=== PATIENT | female | born 1985 | race Caucasian/White ===

== ENCOUNTER → 2021-01-22 13:41 | Outpatient (BNVA) | payer SELFPAY | PROVIDERS: Visit Provider Nurse Practitioner Women's Health | DX: O09.899 Supervision of other high risk pregnancies, unspecified trimester (principal); Z3A.00 Weeks of gestation of pregnancy not specified | CPT/HCPCS: 80307; 81000; 85027; 86592; 86762; 86803; 86850; 86900; 87086; 87340; 87806 ==

== ENCOUNTER → 2021-02-12 09:00 | Outpatient (BNVA) | payer SELFPAY | PROVIDERS: Visit Provider Obstetrics & Gynecology | DX: O09.899 Supervision of other high risk pregnancies, unspecified trimester (principal); O09.522 Supervision of elderly multigravida, second trimester; O34.219 Maternal care for unspecified type scar from previous cesarean delivery; O09.32 Supervision of pregnancy with insufficient antenatal care, second trimester; O30.009 Twin pregnancy, unspecified number of placenta and unspecified number of amniotic sacs, unspecified trimester; Z3A.00 Weeks of gestation of pregnancy not specified | CPT/HCPCS: 81000; 87491; 87591; 87661; 88175 ==

== ENCOUNTER 2021-02-16 14:54 | Outpatient (CLI) | payer SELFPAY ==
--- NOTE | 2021-02-16 15:00 | US_ITS ---
WS: [id number] ULTRASOUND OB LIMITED TECHNIQUE: Limited ultrasound examination of the fetus. CLINICAL INFORMATION: O09.899 - Supervision of other high risk pregnancies, uns... FINDINGS: Closed cervix measures 5.2 CM. Twin intrauterine . presentation is variable Placental location is posterior. heart rate 153 BPM. US/US OB lmt with transvaginal IMPRESSION: 1. Cervix is long and closed measuring 5.2 CM.
== END 2021-02-16 14:55 | disposition home or self-care (01) ==
PROVIDERS: PCP Nurse Practitioner; Visit Provider Obstetrics & Gynecology
DX: O09.899 Supervision of other high risk pregnancies, unspecified trimester (principal); O30.009 Twin pregnancy, unspecified number of placenta and unspecified number of amniotic sacs, unspecified trimester
CPT/HCPCS: 76815; 76817

== ENCOUNTER → 2021-03-08 14:43 | Outpatient (BNVA) | payer SELFPAY | PROVIDERS: PCP Nurse Practitioner; Visit Provider Obstetrics & Gynecology | DX: O09.899 Supervision of other high risk pregnancies, unspecified trimester (principal); Z3A.00 Weeks of gestation of pregnancy not specified | CPT/HCPCS: 81000 ==

== ENCOUNTER → 2021-04-01 09:58 | Outpatient (BNVA) | payer SELFPAY | PROVIDERS: PCP Nurse Practitioner; Visit Provider Obstetrics & Gynecology | DX: O09.899 Supervision of other high risk pregnancies, unspecified trimester (principal); O26.899 Other specified pregnancy related conditions, unspecified trimester; Z67.91 Unspecified blood type, Rh negative; O09.522 Supervision of elderly multigravida, second trimester; O34.219 Maternal care for unspecified type scar from previous cesarean delivery; O09.32 Supervision of pregnancy with insufficient antenatal care, second trimester; O30.009 Twin pregnancy, unspecified number of placenta and unspecified number of amniotic sacs, unspecified trimester; Z3A.00 Weeks of gestation of pregnancy not specified | CPT/HCPCS: 81000; 82950; 85025; 86850 ==

== ENCOUNTER → 2021-04-15 10:38 | Outpatient (BNVA) | payer SELFPAY | PROVIDERS: PCP Nurse Practitioner; Visit Provider Obstetrics & Gynecology | DX: O09.899 Supervision of other high risk pregnancies, unspecified trimester (principal); O36.8190 Decreased fetal movements, unspecified trimester, not applicable or unspecified; O09.522 Supervision of elderly multigravida, second trimester; O34.219 Maternal care for unspecified type scar from previous cesarean delivery; O30.009 Twin pregnancy, unspecified number of placenta and unspecified number of amniotic sacs, unspecified trimester; Z3A.00 Weeks of gestation of pregnancy not specified | CPT/HCPCS: 81000 ==

== ENCOUNTER → 2021-04-29 10:31 | Outpatient (BNVA) | payer SELFPAY | PROVIDERS: PCP Nurse Practitioner; Visit Provider Obstetrics & Gynecology | DX: O09.899 Supervision of other high risk pregnancies, unspecified trimester (principal) | CPT/HCPCS: 81000 ==

== ENCOUNTER → 2021-05-06 13:04 | Outpatient (BNVA) | payer SELFPAY | PROVIDERS: PCP Nurse Practitioner; Visit Provider Obstetrics & Gynecology | DX: O09.899 Supervision of other high risk pregnancies, unspecified trimester (principal) | CPT/HCPCS: 81000 ==

== ENCOUNTER → 2021-05-13 13:00 | Outpatient (BNVA) | payer SELFPAY | PROVIDERS: PCP Nurse Practitioner; Visit Provider Obstetrics & Gynecology | DX: O09.899 Supervision of other high risk pregnancies, unspecified trimester (principal) | CPT/HCPCS: 81000 ==

== ENCOUNTER 2021-05-24 12:10 | Outpatient (CLI) | payer SELFPAY ==
[2021-05-24] VITALS (9 sets, daily range): BP systolic 129–147; BP diastolic 62–84; PULSE 99–105; RESP 17; BMI 51.5
--- NOTE | 2021-05-24 12:41 | US_ITS ---
WS: [id number] ULTRASOUND OB LIMITED TECHNIQUE: Limited ultrasound examination of the fetus. CLINICAL INFORMATION: twin gestation COMPARISON: May 06, 2021, April 29, 2021. FINDINGS: Normal cervix measuring 4.2 CM. Twin interuterine gestation. presentation is breech for both twins Placenta twin A not well visualized. Placenta twin B appears anterior fundal. heart rate 147 BPM. Normal JEREMY Biophysical profile 8 out of 8. breathin movement: 2 tone: 2 Amniotic fluid: 2 US/US OB BPP wo NST twins IMPRESSION: 1. Normal biophysical profile 8 out of 8 in twin A and B 2. presentation is breech for both twins 3. Normal cervix measuring 4.2 cm
[2021-05-24] MEDS: betamethasone susp 6 mg/mL 5 mL 12 MG IM (13:09)
== END 2021-05-24 14:25 | disposition home or self-care (01) ==
LOC: OPOB 12:18 → OBGYN 12:20
PROVIDERS: PCP Nurse Practitioner; Visit Provider Obstetrics & Gynecology
DX: O30.009 Twin pregnancy, unspecified number of placenta and unspecified number of amniotic sacs, unspecified trimester (principal)
CPT/HCPCS: 59025; 76819; 81000; 87635; 96372; 99211; J0702

== ENCOUNTER 2021-05-25 12:58 | Outpatient (CLI) | payer SELFPAY ==
[2021-05-25 13:00] VITALS: BMI 52.8
[2021-05-25] MEDS: betamethasone susp 6 mg/mL 5 mL 12 MG IM (13:10)
[2021-05-25 13:13] VITALS: BP 174/100; PULSE 103
[2021-05-25 13:14] VITALS: BP 133/80; PULSE 92
--- NOTE | 2021-05-25 13:24 | PC.NURSE ---
PT HERE FOR 2ND STERIOD INJECTION, BLOOD PRESSURE DONE WHILE SHE WAS STANDING AND TALKING AND MOVING ARM AROUND, HAD HER SIT DOWN AND B/P RETAKEN. AND IT WAS MUCH BETTER.
[2021-05-25 13:25] VITALS: BP 133/80; PULSE 92; RESP 20
== END 2021-05-25 13:20 | disposition home or self-care (01) ==
LOC: OPOB 13:02 → OBGYN 13:02
PROVIDERS: PCP Nurse Practitioner; Visit Provider Obstetrics & Gynecology
DX: O36.0190 Maternal care for anti-D [Rh] antibodies, unspecified trimester, not applicable or unspecified (principal); Z3A.00 Weeks of gestation of pregnancy not specified
CPT/HCPCS: 96372; 99211; J0702

== ENCOUNTER 2021-05-27 05:14 | Inpatient (IN) | payer SELFPAY ==
--- NOTE | 2021-05-24 14:51 | P.ANESASSM_ITS ---
Pre-Anesthetic Assessment Pre-Anesthetic Assessment: Height/Weight: Height 1.63 m Proposed Procedure: Operation Date: 05/27/21 07:00 Proposed Procedures p Section Repeat(Not Applicable) - Katie Downing MD Was Beta Dede taken within 24 hours: N/A Was Clonidine taken within 24 hours: N/A Social: Social History: No alcohol and No tobacco Exam: Pre-Anes Outpt Exam: alert, oriented x 3, clear to auscultation bilaterally and regular rate & rhythm Airway: Submandibular: WNL Cervical ROM: WNL MP: 2 Dentition: Chipped Metabolic: Metabolic: Morbid obesity Anesthetic Plan: ASA status: 3 Anesthesia: Regional (specify below) (SAB) Other: Repeat C/S, twin Risk of > 500 ml blood loss (7ml/kg in children): Yes, adequate IV access and fluids planned PFSH Anesthesia PFSH: Medical History No pertinent past medical history Neg hx: HTN, DM, thyroid, DVT/PE PCP: None Surgical History History of delivery section 1: 2012 - T -incision per patient. Abnormal presentation - hands and feet. History of delivery section 2: 2014 - Repeat section History of delivery section 3: 2016 - Repeat section History of delivery section 4: 2018 - Repeat section History of delivery section 5: 02/19/2019 - Repeat LTCS. Performed by Dr. Cullen Ruiz at [facility] in [place], [place]. Family History Grandfather Cancer unknown type Denies family history of Diabetes CAD (coronary artery disease) Clotting disorder Dementia Hyperlipidemia Psychiatric illness Chronic kidney disease (CKD) Anesthesia complication Bleeding disorder Lung disease Hypertension Stroke Data Anesthesia Cardiac Studies: No Data to Display
[2021-05-27] VITALS (39 sets, daily range): BP systolic 108–170; BP diastolic 60–93; PULSE 62–88; RESP 16–19; TEMP 36.2–36.8; O2SAT 96–100; BMI 51.1
[2021-05-27 06:21] LABS: Basophils % 0.2 %; Eosinophils % 0.3 %; Hematocrit 33.8 % (37.0-47.0); Lymphocytes # 2.2 10^3/uL (0.8-4.8); Lymphocytes % 20.9 %; Mean Corpuscular HGB Conc 32.5 g/dL (30.0-36.0); Mean Corpuscular Hemoglobin 28.2 pg (28.0-34.0); Mean Corpuscular Volume 86.7 fl (81-99); Mean Platelet Volume 10.8 fL (7.4-10.4); Monocytes # 0.9 10^3/uL (0.2-0.9); Monocytes % 8.3 %; Neutrophils # 7.34 10^3/uL (1.8-7.7); Nucleated Red Blood Cells % 0 %; Platelet Count 207 10^3/cmm (130-400); Red Cell Distribution Width 14.6 % (12.1-15.1); White Blood Count 10.6 10^3/uL (4.0-10.0)
[2021-05-27] MEDS: famotidine 20 mg/2 mL INJ IVP (06:50)
[2021-05-27] MEDS: metoclopramide 5 mg/mL SDV 2 mL 10 MG IVP (06:50)
[2021-05-27] MEDS: citric acid-sodium citrate 30 mL UDC PO (06:51)
--- NOTE | 2021-05-27 06:51 | P.ANESUD_ITS ---
Pre-Anesthetic Update Pre-Anesthetic Assessment: Date of Surgery/Procedure: 05/27/21 Preop Aylin gnosis: previous C/S Proposed Procedure: Operation Date: 05/27/21 07:00 Proposed Procedures p Section Repeat(Not Applicable) - Katie Downing MD Any changes to Pre-Anesthetic Assessment?: No Last Intake: Intake Last Liquid Date 05/27/21 Last Liquid Time 00:00 Last Solid Date 05/26/21 Last Solid Time 19:00 Labs Last 48hrs: Laboratory Results - last 48 hr 05/27/21 05:50 WBC 10.6 H RBC 3.90 L Hgb 11.0 L Hct 33.8 L MCV 86.7 MCH 28.2 MCHC 32.5 RDW 14.6 Plt Count 207 MPV 10.8 H Neut % (Auto) 69.0 Lymph % (Auto) 20.9 Taliaferro % (Auto) 8.3 Eos % (Auto) 0.3 Baso % (Auto) 0.2 Neut # (Auto) 7.34 Lymph # (Auto) 2.2 Taliaferro # (Auto) 0.9 Eos # (Auto) 0.0 Baso # (Auto) 0.0 Nucleated RBC % (a uto) 0 Nucleated RBCs # 0.0 Vitals: Temperature 97.5 F L 05/27/21 06:37 Pulse Rate 78 05/27/21 06:35 Pulse Rhythm 05/27/21 06:29 Pulse Strength 3+ Normal 05/27/21 06:29 Respiratory Rate 16 05/27/21 06:36 Respiratory Effort Non-Labored 05/27/21 06:29 Respiratory Depth Normal 05/27/21 06:29 Respiratory Patter n 05/27/21 06:29 Blood Pressure 132/84 05/27/21 06:35 Oxygen Delivery Me thod 05/27/21 06:36 Exam: Pre-Anes Outpt Exam: alert, oriented x 3 and clear to auscultation bila terally Cardiac Studies: No Data to Display
[2021-05-27] MEDS: lactated ringers 1,000 ML 999 ML IV (06:52)
--- NOTE | 2021-05-27 06:59 | PM.OPHPUD ---
Labor & Delivery H&P Update Date of Procedure: May 27, 2021 Date H&P Performed: 05/24/21 H&P update information: I have reviewed H&P completed within last 30 days, I have examined patient prior to procedure and No changes to prior documentation Changes to previous documentation: The patient presents for repeat at 36 weeks due to previous T incision. she has received two doses of betamethazone earlier this week. She is seen and no changes to previous documentation. Admission Diagnosis: Preop diagnosis: previous C/S Planned procedure: Operation Date: 05/27/21 07:00 Proposed Procedures p Section Repeat(Not Applicable) - Katie Downing MD Related Problem List Diagnoses (1) Twin : (2) Late care affecting : (3) Previous delivery affecting : (4) Supervision of other high-risk : (5) Elderly multigravida:
--- NOTE | 2021-05-27 09:01 | PM.OP ---
Operative Report Date of procedure: May 27, 2021 Pre-op Diagnosis: previous C/S, twin iup at 36 weeks Post-op diagnosis: same Post-op Findings: twin . Normal appearing uterus, tubes and ovaries Procedure Done: repeat low transverse Specimens removed/disposition: placenta to pathology Surgeon: Katie Downing Anesthesia: Other (spinal) Estimated blood loss (mL): 300 IV fluids (mL): 2,200 Urine output (mL): 125 Complications: none Findings: twin gestation. Normal appearing uterus, tubes and ovaries Condition: stable Disposition: floor Procedure: The patient was taken to the operating room where spinal anesthesia was administered and found to be adequate. She was prepped and draped in the normal sterile fashion in the dorsal supine position with a leftward tilt. A Pfannenstiel skin incision was made and carried down to the underlying layer of fascia. The fascia was nicked in the midline and extended laterally with the Roberts scissors. The fascia was then tented up and the rectus muscles dissected off sharply. The rectus muscles were and the peritoneum entered bluntly with the digit. The peritoneal incision was extended superiorly and inferiorly with good visualization of the bladder. The Ramirez O retractor was placed. It was clear of any bowel or omentum. The bladder flap was created sharply with the Metzenbaum scissors. A low transverse uterine incision was made and carried down to the bag of water. The bag of water was ruptured and the uterine incision extended cephalocaudad. The scalp of baby A was grasped and brought through the incision. The nose and mouth were bulb suctioned. The shoulders and body delivered atraumatically. The baby was allowed to rest, while being dried, for 1 minute and then the cord was clamped and cut. The baby was handed to the waiting eddy current inspector. Attention was then turned to baby B. The breech was brought through the incision, followed by the torso, arms and head. The baby was bulb suctioned and allowed to rest for 1 minute before the cord was clamped and cut and handed to the waiting eddy current inspector. The placenta was delivered by expression. The uterus was exteriorized and cleared of all clots and debris. The uterine incision was closed with 0 Vicryl in a running fashion. A second imbricating layer of 3-0 Monocryl was used to close the uterus. The bladder flap was closed with 3-0 Monocryl. There was excellent hemostasis. The Ramirez O retractor was removed. The uterus was returned to the abdomen. The peritoneum was closed with 3-0 Monocryl, incorporating the rectus muscle. The fascia was closed with 0 Vicryl in 2 separate sutures overlapping in the midline. The skin was closed with absorbable remedios. Apgars on baby A nine at 1 minute and nine at 5 minutes. weight 6 pounds 2 ounces. Apgars on baby B seven at 1 minute and eight at 5 minutes. weight 6 pounds 4 ounces. Mother and baby were stable post delivery. Mother and babies were stable post delivery.
[2021-05-27] MEDS: ondansetron 2 mg/ML SDV 2 mL 4 MG IVP ×2 (13:01→19:52)
[2021-05-27] MEDS: sodium chloride 0.9% 500 ML 999 ML IV (13:39)
[2021-05-27 14:33] LABS: Basophils % 0.2 %; Eosinophils # 0.1 10^3/uL (0.0-0.8); Eosinophils % 0.5 %; Hematocrit 30.7 % (37.0-47.0); Lymphocytes # 1.9 10^3/uL (0.8-4.8); Lymphocytes % 14.8 %; Mean Corpuscular HGB Conc 32.6 g/dL (30.0-36.0); Mean Corpuscular Hemoglobin 28.9 pg (28.0-34.0); Mean Corpuscular Volume 88.7 fl (81-99); Mean Platelet Volume 10.8 fL (7.4-10.4); Monocytes % 7.9 %; Neutrophils # 9.61 10^3/uL (1.8-7.7); Neutrophils % 75.9 %; Nucleated Red Blood Cells % 0 %; Platelet Count 177 10^3/cmm (130-400); Red Blood Count 3.46 10^6/uL (4.1-5.3); Red Cell Distribution Width 14.6 % (12.1-15.1); White Blood Count 12.7 10^3/uL (4.0-10.0)
[2021-05-27] MEDS: ketorolac 30 mg/mL INJ IVP ×2 (14:42→20:56)
[2021-05-27] MEDS: dextrose 5%-lactated ringers 1,000 ML 125 ML IV (14:43)
[2021-05-27] MEDS: scopolamine 1.5 Patch 1 PATCH TRANSDERMA (14:51)
--- NOTE | 2021-05-27 15:41 | PC.NURSE ---
Patient Note Patient refused to get out of bed at this time. Patient still feeling nauseated any time she moves or elevates her head above 30 degrees. Will continue to monitor. Patient educated regarding the importance of ambulation following surgery. Patient verbalized understanding.
--- NOTE | 2021-05-27 16:51 | PC.NURSE ---
Patient states she is still not quite ready to move to chair. Patient is sitting up at a 50 degree angle at this time and is tolerating it better than she has. Will continue to monitor.
[2021-05-27 21:12] LABS: Hematocrit 29.9 % (37.0-47.0); Hemoglobin 9.7 g/dL (11.5-15.3); Mean Corpuscular HGB Conc 32.4 g/dL (30.0-36.0); Mean Corpuscular Hemoglobin 28.8 pg (28.0-34.0); Mean Corpuscular Volume 88.7 fl (81-99); Mean Platelet Volume 10.2 fL (7.4-10.4); Platelet Count 162 10^3/cmm (130-400); Red Blood Count 3.37 10^6/uL (4.1-5.3); Red Cell Distribution Width 14.7 % (12.1-15.1); White Blood Count 10.5 10^3/uL (4.0-10.0)
[2021-05-28] MEDS: ketorolac 30 mg/mL INJ IVP (03:10)
[2021-05-28 04:00] VITALS: BP 98/55; RESP 14; O2SAT 95
--- NOTE | 2021-05-28 08:34 | PC.NURSE ---
note Mom reports both babies can latch. She is willing to continue to supplement as needed. Mom wants to work on latch by herself and did not want help for now. Discussed expressing her milk to use first then formula when babies do not latch well. Provided contact information.
[2021-05-28] MEDS: ferrous sulfate EC 325 mg Tablet PO (08:57)
[2021-05-28] MEDS: docusate sodium 100 mg Capsule PO (08:57)
[2021-05-28] MEDS: prenatal vitamin Capsule 1 CAP PO (08:57)
[2021-05-28 09:00] VITALS: BP 94/64; PULSE 73; RESP 17; TEMP 36.6
--- NOTE | 2021-05-28 15:11 | PM.PN ---
Vitals/I&O/Wt Last Vital Signs Temp 97.9 F 05/28/21 09:00 Pulse 73 05/28/21 09:00 Resp 17 05/28/21 09:00 BP 94/64 05/28/21 09:00 Pulse Ox 95 05/28/21 04:00 05/28/21 05/28/21 05/28/21 06:59 14:59 22:59 Output Total 700 / 1400 400 / 400 Balance -700 / 475 -400 / -400 Weight last 48 hrs Weight 298 lb Physical Exam Narrative: EXAM NARRATIVE: The patient is doing well this morning. She has been up. Her pain is well controlled. Babies are doing ok. They are bottle feeding now due to low blood sugar issues. Her urine output has been good and she reports minimal vaginal bleeding Const: COMMON NORMALS: no acute distress, patient oriented x3, no limitations, alert and well nourished GENERAL APPEARANCE: cooperative, comfortable, well kempt and well developed ORIENTATION/CONSCIOUSNESS: Yes awake, Yes oriented to person, Yes oriented to place and Yes oriented to time Resp: COMMON NORMALS: normal respiratory effort EFFORT & INSPECTION: Yes able to speak in complete sentences GI: COMMON NORMALS: Soft to palpation and non-tender PALPATION: Yes Soft to palpation Extremity: COMMON NORMALS: no calf tenderness Neuro: COMMON NORMALS: patient oriented x3 SENSORIUM/ORIENTATION: Yes alert, Yes oriented to person, Yes oriented to place and Yes oriented to time Psych: APPEARANCE: Yes well kempt Urinary Catheter Management^: Lyles Latex: Cath Placed During This Visit: yes, but has since been removed by the nurse Reason for Continuing Indwelling Catheter: Other Urinary Catheter Date of Insertion: 05/27/21 Urinary Catheter Time of Insertion: 07:50 Date Urinary Catheter Removed: 05/28/21 Time Urinary Catheter Discontinued: 07:20 Data : 05/27/21 21:04 A&P Assessment and plan (1) state: The patient is doing well routine and postoperative care plan for discharge tomorrow or Monday Status: Acute Attestations Medical Necessity Statement*: The patient had a for twins yesterday. She will be here at least two nights. Coding Level of Care Code Acute Director Of Outpatient Services for Chg Fwd Diagnoses state Z39.2
[2021-05-28 15:20] VITALS: BP 117/71; PULSE 65; RESP 16; TEMP 36.7
[2021-05-28] MEDS: ibuprofen 800 mg tablet PO (15:20)
[2021-05-28 21:00] VITALS: BP 124/85; PULSE 68; RESP 18; TEMP 36.8
[2021-05-28 22:18] VITALS: BP 124/85; PULSE 68; RESP 18; TEMP 36.8
[2021-05-29 03:00] VITALS: BP 124/76; PULSE 71; RESP 18; TEMP 37.2; O2SAT 97
[2021-05-29] MEDS: prenatal vitamin Capsule 1 CAP PO (09:12)
[2021-05-29] MEDS: docusate sodium 100 mg Capsule PO (09:12)
[2021-05-29] MEDS: ferrous sulfate EC 325 mg Tablet PO (09:12)
[2021-05-29] MEDS: ibuprofen 800 mg tablet PO (09:12)
[2021-05-29 09:51] VITALS: BP 134/73; PULSE 73; RESP 16; TEMP 37.1
--- NOTE | 2021-05-29 12:06 | PM.DCS ---
Discharge Providers Date of Admission: 05/27/21 05:14 Date of Discharge: May 29, 2021 Attending Provider at Admission: Katie Downing MD Attending Provider at Discharge: Katie Downing MD Primary Care Provider: CATHERINE Barnes Diagnoses at Discharge Discharge Diagnosis (1) state: Status: Acute Reason for Visit Reason for Visit: Hospital Course Hospital Course The patient was admitted for repeat for twins. She did well postoperatively and was ready for discharge on day #2. She declines any pain medication for home use and states that she will use ibuprofen only. She is discharged home in stable condition. Physical Exam Narrative: EXAM NARRATIVE: The patient is doing well this morning. No concerns. Const: COMMON NORMALS: no acute distress, patient oriented x3, no limitations, healthy appearing and alert GENERAL APPEARANCE: cooperative, comfortable, well kempt and well developed ORIENTATION/CONSCIOUSNESS: Yes awake, Yes oriented to person, Yes oriented to place and Yes oriented to time Resp: COMMON NORMALS: normal respiratory effort EFFORT & INSPECTION: Yes able to speak in complete sentences GI: COMMON NORMALS: Soft to palpation and non-tender PALPATION: Yes Soft to palpation Extremity: COMMON NORMALS: no calf tenderness Neuro: COMMON NORMALS: patient oriented x3 SENSORIUM/ORIENTATION: Yes alert, Yes oriented to person, Yes oriented to place and Yes oriented to time Psych: APPEARANCE: Yes well kempt Urinary Catheter Management^: Lyles Latex: Cath Placed During This Visit: yes, but has since been removed by the nurse Reason for Continuing Indwelling Catheter: Other Urinary Catheter Date of Insertion: 05/27/21 Urinary Catheter Time of Insertion: 07:50 Date Urinary Catheter Removed: 05/28/21 Time Urinary Catheter Discontinued: 07:20 Discharge Data Data Completed and Pending: Pending at discharge Category Date Time Status Complete Crossmat ch Stat Lab 05/27/21 05:50 Results PRBC [Leukocyte R educed RBC] Stat Lab 05/27/21 05:50 Results Rho D Immune Glob ulin Stat Lab 05/27/21 05:50 Results Type and Screen S tat Lab 05/27/21 05:50 Results Labs from last 24 hours 05/27/21 05:50 Blood Type A Negative Rho(D) Type Negative Antibody Screen Negative Crossmatch See Detail Vitals: Last Vital Signs Temp 98.8 F 05/29/21 09:51 Pulse 73 05/29/21 09:51 Resp 16 05/29/21 09:51 BP 134/73 05/29/21 09:51 Pulse Ox 97 05/29/21 03:00 Discharge Plan Discharge Patient Disposition: Home Condition: Stable Prescriptions: Continued prenat.vits,ramy,yge-otfy-fqwdm Tablet 1 tab PO DAILY RF: 0 Discharge Orders: Discharge Order (Routine); Ordered 05/29/21 Ordered By: Katie Downing Patient Instructions: Depression (DC), How to Hold and Breastfeed Your Baby (DC), and Nipple Soreness (DC), How to Increase Your Milk Supply (DC), Preeclampsia and Eclampsia After Delivery (GEN), OB WHC, OB Discharge Report, OB Care at Home, Opioid Safety, OB Home Care, Abnormal Bleeding Discharge Attestations Time Spent in Discharge Care*: less than 30 min Quality Metrics Clinical Quality Measures During this hospital stay, did patient experience: None Coding Level of Care Code Acute Chg FW DC note Diagnoses state Z39.2
[2021-05-29 13:15] VITALS: BP 128/69; PULSE 72; RESP 16; TEMP 36.6
== END 2021-05-29 13:30 | disposition home or self-care (01) | DRG 788 ==
PROVIDERS: Admitting Provider Obstetrics & Gynecology; PCP Nurse Practitioner; Visit Provider Obstetrics & Gynecology
PROC: 10D00Z1 Extraction of Products of Conception, Low, Open Approach (ICD-10-PCS; CPT 59514; principal; 2021-05-27 07:00)
DX: O34.211 Maternal care for low transverse scar from previous cesarean delivery (principal); O30.003 Twin pregnancy, unspecified number of placenta and unspecified number of amniotic sacs, third trimester; O32.1XX2 Maternal care for breech presentation, fetus 2; Z3A.36 36 weeks gestation of pregnancy; Z37.2 Twins, both liveborn
CPT/HCPCS: 36415; 36430; 51702; 59025; 59409; 85025; 85027; 85460; 86850; 86900; 86920; 90384; 96374; 96376; J0690; J1885; J2274; J2370; J2405; J2765; J3490; J7040

== ENCOUNTER → 2023-04-06 10:52 | Outpatient (BNVA) | payer SELFPAY | PROVIDERS: PCP Nurse Practitioner; Visit Provider Nurse Practitioner Women's Health | DX: O09.899 Supervision of other high risk pregnancies, unspecified trimester (principal) | CPT/HCPCS: 80307; 81000; 82950; 84439; 84443; 84481; 85027; 86592; 86762; 86803; 86850; 86900; 87086; 87340; 87491; 87591; 87806 ==

== ENCOUNTER → 2023-04-10 09:32 | Outpatient (BNVA) | payer SELFPAY | PROVIDERS: PCP Nurse Practitioner; Visit Provider Nurse Practitioner Women's Health | DX: O09.899 Supervision of other high risk pregnancies, unspecified trimester (principal) | CPT/HCPCS: 76805; 81000; 87491; 87591 ==

== ENCOUNTER → 2023-04-28 08:45 | Outpatient (BNVA) | payer SELFPAY | PROVIDERS: PCP Nurse Practitioner; Visit Provider Obstetrics & Gynecology | DX: O09.899 Supervision of other high risk pregnancies, unspecified trimester (principal); Z3A.27 27 weeks gestation of pregnancy | CPT/HCPCS: 82951; 82952 ==

== ENCOUNTER → 2023-05-08 10:57 | Outpatient (BNVA) | payer SELFPAY | PROVIDERS: PCP Nurse Practitioner; Visit Provider Obstetrics & Gynecology | DX: O09.899 Supervision of other high risk pregnancies, unspecified trimester (principal); Z3A.00 Weeks of gestation of pregnancy not specified | CPT/HCPCS: 81000 ==

== ENCOUNTER → 2023-05-23 08:59 | Outpatient (BNVA) | payer SELFPAY | PROVIDERS: PCP Nurse Practitioner; Visit Provider Obstetrics & Gynecology | DX: O09.92 Supervision of high risk pregnancy, unspecified, second trimester (principal) | CPT/HCPCS: 76816; 81000 ==

== ENCOUNTER → 2023-05-29 09:27 | Outpatient (BNVA) | payer SELFPAY | PROVIDERS: PCP Nurse Practitioner; Visit Provider Obstetrics & Gynecology | DX: O09.899 Supervision of other high risk pregnancies, unspecified trimester (principal); Z3A.32 32 weeks gestation of pregnancy | CPT/HCPCS: 81000 ==

== ENCOUNTER → 2023-06-12 10:16 | Outpatient (BNVA) | payer SELFPAY | PROVIDERS: PCP Nurse Practitioner; Visit Provider Nurse Practitioner Women's Health | DX: O09.899 Supervision of other high risk pregnancies, unspecified trimester (principal); O09.529 Supervision of elderly multigravida, unspecified trimester; O34.219 Maternal care for unspecified type scar from previous cesarean delivery; O09.30 Supervision of pregnancy with insufficient antenatal care, unspecified trimester; Z64.1 Problems related to multiparity; O26.899 Other specified pregnancy related conditions, unspecified trimester; Z67.91 Unspecified blood type, Rh negative; Z3A.34 34 weeks gestation of pregnancy | CPT/HCPCS: 81000; 86850 ==

== ENCOUNTER → 2023-06-27 10:00 | Outpatient (BNVA) | payer SELFPAY | PROVIDERS: PCP Nurse Practitioner; Visit Provider Obstetrics & Gynecology | DX: O09.899 Supervision of other high risk pregnancies, unspecified trimester (principal); Z3A.36 36 weeks gestation of pregnancy | CPT/HCPCS: 81000 ==

== ENCOUNTER 2023-07-13 05:35 | Inpatient (IN) | payer SELFPAY ==
[2023-07-13] VITALS (8 sets, daily range): BP systolic 108–120; BP diastolic 62–70; PULSE 63–66; RESP 16–18; TEMP 36.1–36.2; O2SAT 96–98; BMI 48.0
--- NOTE | 2023-07-13 01:41 | P.HP_ITS ---
Providers/Chief Complaint Admitting Physician: Steffen Salinas MD Primary MICROSTRATEGY BI DEVELOPER: Steffen Salinas MD Primary Care Provider: CATHERINE Barnes [facility] MICROSTRATEGY BI DEVELOPER History of Present Illness 38? y.o.? G13? P10? A2? L11 EDC ? July 25, 2023 At 38 w 2 d h/o c-sections x six now admitted for repeat c-s for delivery no c/o + active movements Medications/Allergies Home Medications Medication Instructions Recorded Confirmed Last Taken Type prenat.vits,ramy,bec-ylpq-melhw 1 tab PO DAILY 01/22/21 07/04/23 1 Day Ago History ~05/26/21 calcium carbonate 500 mg calcium 500 mg PO DAILY 04/06/23 07/04/23 Unknown History (1,250 mg) chewable tablet (Calcium 500) blood-glucose meter (Blood Glucose #1 ea 04/07/23 07/04/23 Unknown Rx Monitoring kit) Allergies Allergy/AdvReac Type Severity Reaction Status Date / Time No Known Allergies Allergy Verified 07/04/23 10:41 PFSH MICROSTRATEGY BI DEVELOPER PFSH: Medical History state Twin No pertinent past medical history Neg hx: HTN, DM, thyroid, DVT/PE PCP: None Surgical History History of delivery section 5: 02/19/2019 - Repeat LTCS. Performed by Dr. Cullen Ruiz at [facility] in [place], [place]. History of delivery section 4: 2018 - Repeat section History of delivery section 3: 2016 - Repeat section History of delivery section 2: 2014 - Repeat section History of delivery section 1: 2012 - T -incision per patient. Abnormal presentation - hands and feet. Family History Grandfather Cancer unknown type Denies family history of Diabetes CAD (coronary artery disease) Clotting disorder Dementia Hyperlipidemia Psychiatric illness Chronic kidney disease (CKD) Anesthesia complication Bleeding disorder Lung disease Hypertension Stroke History History History 12 Term 9 2 Miscarriages/Ectopic 2 Living Children 11 Care NINA Calculator Estimated Delivery Date Method Current WG Current Estimate 07/25/23 LMP (Certain) 38w 2d Other Estimates 07/21/23 Ultrasound #1 38w 6d Physical Exam Narrative: Weight 280? lbs;? 5?4? VS normal Lungs: clear Cor: RRR Fundal height 38 cm, large pannus FHTs normal Results Labs OB ([facility]): Obstetrics US 05/23/23 Obstetrics US/Biophysical Profile Blood Type A Negative 04/06/23 Antibody Screen Negative 06/12/23 Hct 35.0 % (36-47) L 04/06/23 Hgb 11.50 g/dL (11.27-16.99) 04/06/23 Rho(D) Type Negative 04/06/23 Plt Count 222 10^3/cmm (157-399) 04/06/23 Hep Bs Antigen Non-reactive (Nonreactive) 04/06/23 Hepatitis C Antibody Non-reactive (Nonreactive) 04/06/23 Rubella IgG Antibody 123.4 IU/mL (0.0-10.0) H 04/06/23 RPR Nonreactive (Nonreactive) 04/06/23 HIV 1&2 Ab & HIV 1 Ag Non-reactive (Non-Reactiv) 04/06/23 TSH 0.69 uIU/mL (0.27-4.20) 04/06/23 Free T4 0.85 ng/dL (0.82-1.77) 04/06/23 C.trachomatis RNA (TMA) Not detected (NOT DETECTED) N.gonorrhoeae RNA (TMA) Not detected (NOT DETECTED) T. vaginalis Amp RNA Not detected (NOT DETECTED) 04/10/23 Chlamydia/GC Comment See note 04/10/23 Gest Glucose Tolerance mg/dL 04/28/23 Urine Opiates Screen Negative ng/mL (Negative) 04/06/23 Ur Barbiturates Screen Negative ng/mL (Negative) 04/06/23 Ur Phencyclidine Scrn Negative ng/mL (Negative) 04/06/23 Ur Amphetamines Screen Negative ng/mL (Negative) 04/06/23 U Benzodiazepines Scrn Negative ng/mL (Negative) 04/06/23 Urine Cocaine Screen Negative ng/mL (Negative) 04/06/23 U Marijuana (THC) Screen Negative ng/mL (Negative) 04/06/23 Micro Urine Specimen 04/06/23 Pap Smear Interpret See note 02/12/21 A&P Assessment and plan (1) Supervision of other high-risk : 38 w 2 d h/o c-sections x six admit for repeat Risks of multiple c-sections discussed, including, but not limited to, the following: discussed with patient significant risk of morbidly adherent placenta (MAP) with grand multiparity and increasing number of c-sections.? Occasionally, MAP may not be diagnosed until intra-operatively and may require large amounts of transfusions.? It may require a hysterectomy to control the bleeding.? This may result in significant morbidity and even from hemorrhage. In addition, multiple c-sections can thin out the lower segment of the uterus so much that uterine rupture with can occur at any time during gestation.? It can occur with very mild uterine contractions.? This is why sometimes it is recommended to deliver the baby before 39 weeks gestation, however, balancing that with the risk of prematurity. The above was explained to patient.? Patient voiced understanding and agrees to proceed. I have discussed this case with CICI Thomas at [facility].? Dr. Staples strongly supports my decision to deliver the patient before 39 weeks of gestation for the above reasons.? (Dr. Staples, Office #? [phone]) Attestations Medical Necessity Statement*: patient at 38 w 2 d, admitted for repeat Coding Level of Care Code Acute Code for Chg Fwd Diagnoses Supervision of other high-risk O09.899 Time Spent (min) 30
[2023-07-13] MEDS: lactated ringers 1,000 ML 999 ML IV (06:20)
[2023-07-13 06:24] LABS: Basophils % 0.2 %; Eosinophils # 0.2 10^3/uL (0.0-0.8); Eosinophils % 2.4 %; Hematocrit 35.1 % (36-47); Lymphocytes % 23.2 %; Mean Corpuscular HGB Conc 33.6 g/dL (30-55); Mean Corpuscular Hemoglobin 28.2 pg (27-33); Mean Platelet Volume 10.2 fL (7.4-10.4); Monocytes # 0.5 10^3/uL (0.2-0.9); Monocytes % 5.7 %; Neutrophils # 5.77 10^3/uL (1.8-7.7); Neutrophils % 68.1 %; Nucleated Red Blood Cells % 0 %; Platelet Count 204 10^3/cmm (157-399); Red Blood Count 4.18 10^6/uL (3.85-5.65); Red Cell Distribution Width 14.2 % (12.1-15.1); White Blood Count 8.46 10^3/uL (3.29-11.43)
--- NOTE | 2023-07-13 06:36 | ANES.PREANE2 ---
Pre-Anesthetic Assessment Height/Weight: Height 1.63 m Weight 127.006 kg Preop Diagnosis: Repeat Operation Date: 07/13/23 07:00 Proposed Procedures p Repeat section 35823,O34.219(Not Applicable) - Steffen Salinas MD Familial anesthetic complications: N/V Was Beta Dede taken within 24 hours: N/A Was Clonidine taken within 24 hours: N/A Social No alcohol and No tobacco Exam alert, oriented x 3, clear to auscultation bilaterally and regular rate & rhythm Airway Submandibular: within normal limits Cervical ROM: within normal limits Mallampati: Class III Dentition: chipped History/ROS No significant history except as noted and No significant complaints Pulmonary None reported CV/HEM Palpitations None reported Hepatic None reported GI None reported Metabolic Morbid Obesity Musc/skel Lower Back Pain Neuropsych Neuropathy Anesthetic Plan ASA status: 3 Anesthesia: Anesthesia Evaluation, General and Regional (specify below) (SAB) Risk of > 500 ml blood loss (7ml/kg in children): Yes, adequate IV access and fluids planned Medications/Allergies Home Medications Medication Instructions Recorded Confirmed Last Taken Type prenat.vits,ramy,ido-yzzb-smkuj 1 tab PO DAILY 01/22/21 07/04/23 1 Day Ago History ~05/26/21 blood-glucose meter (Blood Glucose #1 ea 04/07/23 07/04/23 Unknown Rx Monitoring kit) Allergies Allergy/AdvReac Type Severity Reaction Status Date / Time No Known Allergies Allergy Verified 07/04/23 10:41 Current Medications Generic Name Dose Route Start Last Admin Trade Name Freq PRN Reason Stop Dose Admin Lactated Ringer's 1,000 mls @ 999 mls/hr 07/13/23 05:40 07/13/23 06:20 Lactated Ringers IV 07/13/23 06:40 999 mls/hr .Q1H1M ONE Administration [facility] Anesthesia Medical History state Twin No pertinent past medical history Neg hx: HTN, DM, thyroid, DVT/PE PCP: None Surgical History History of delivery section 5: 02/19/2019 - Repeat LTCS. Performed by Dr. Cullen Ruiz at [facility] in [place], [place]. History of delivery section 4: 2018 - Repeat section History of delivery section 3: 2016 - Repeat section History of delivery section 2: 2014 - Repeat section History of delivery section 1: 2012 - T -incision per patient. Abnormal presentation - hands and feet. Family History Grandfather Cancer unknown type Denies family history of Diabetes CAD (coronary artery disease) Clotting disorder Dementia Hyperlipidemia Psychiatric illness Chronic kidney disease (CKD) Anesthesia complication Bleeding disorder Lung disease Hypertension Stroke Female Reproductive History : 13 Data Anesthesia 07/13/23 06:17 Short CBC 07/13/23 Range/Units 06:17 WBC 8.46 (3.29-11.43) 10^3/uL Hgb 11.80 (11.27-16.99) g/dL Hct 35.1 L (36-47) % MCV 84.0 L (85-98) fl Plt Count 204 (157-399) 10^3/cmm Neut % (Auto) 68.1 % Neut # (Auto) 5.77 (1.8-7.7) 10^3/uL Cardiac Studies: No Data to Display
[2023-07-13] MEDS: famotidine 20 mg/2 mL INJ IVP (06:43)
[2023-07-13] MEDS: metoclopramide 5 mg/mL SDV 2 mL 10 MG IVP (06:43)
[2023-07-13] MEDS: citric acid-sodium citrate 30 mL UDC PO (06:46)
--- NOTE | 2023-07-13 07:24 | PC.NURSE ---
[facility] notified Dr. Salinas of a warm temperature of 73 degrees in OR2 at 6:55pm. Dr Salinas stated it is fine with me if it was fine with everyone else .
--- NOTE | 2023-07-13 09:38 | ANE.PACU2 ---
Inpatient post-anesthesia follow up: Airway intact: Yes Vital signs: Temperature 97.1 F Pulse Rate 65 Respiratory Rate 16 Blood Pressure 111/65 Pulse Oximetry 97 Oxygen Delivery Me thod Room Air Oxygen Flow Rate Fraction of Inspir ed Oxygen Hydration adequate: Yes Nausea and vomiting: No Pain level: 1 Mental status: Baseline
[2023-07-13] MEDS: diphenhydrAMINE 50 mg/mL SDV 1mL 25 MG IVP (10:20)
[2023-07-13] MEDS: dextrose 5%-lactated ringers 1,000 ML 125 ML IV (12:34)
[2023-07-13] MEDS: ondansetron 2 mg/ML SDV 2 mL 4 MG IVP (15:48)
--- NOTE | 2023-07-13 19:39 | PM.OP ---
Operative Report Date of procedure: July 13, 2023 Pre-op diagnosis: 38 w 2 d gestation Previous x six For repeat Post-op diagnosis: same Post-op findings: Vigorous female Normal placenta and cord Normal uterus, tubes, and ovaries Procedure done: Repeat low-transverse Implants: none Specimens removed/disposition: placenta and cord, discarded Surgeon: Steffen Salinas MD Anesthesia: Spinal Estimated blood loss (mL): 500 Complications: none Condition: stable Disposition: floor Brief History: 38 y.o. with h/o six previous c-sections, now for repeat Procedure: Informed consent signed. Patient was taken to the operating room, placed supine in the left lateral tilt position. Spinal anesthesia and a Lyles catheter were already placed. The abdomen was prepped and draped in the usual sterile fashion. A Pfannenstiel incision was made over an old scar and carried down through skin and subcutaneous tissue and fascia. The fascial incision was extended laterally with Roberts scissors. The fascia was from the underlying rectus muscles. The rectus muscles were split in the midline. The peritoneum was entered bluntly avoiding underlying organs. A bladder flap was created. A low transverse uterine incision was made and extended laterally bluntly avoiding the uterine vessels. Clear amniotic fluid was seen. The baby was delivered in cephalic presentation atraumatically. The baby was suctioned. The cord was clamped and cut and the baby was handed to an awaiting chemical dependency attendant. Cord blood was obtained. The placenta was manually removed intact. The uterus was not exteriorized. The uterine cavity was bluntly curetted with wet laps. The uterine incision was then closed with a continuous interlocking stitch of O chromic. Adequate hemostasis was seen. No bleeding was seen. The fascia was then closed with a continuous stitch of O-Vicryl. Additional interrupted stitches of O-Vicryl were used for fascial closure. The subcutaneous tissue was irrigated and inspected for hemostasis. The skin was then reapproximated using Insorb remedios. Postoperative condition stable Disposition to recovery room Estimated blood loss 500 cc, no replacement Sponge, needle, and instrument counts were correct x two There were no complications
[2023-07-13 20:51] LABS: Hematocrit 31.3 % (36-47); Mean Corpuscular HGB Conc 33.9 g/dL (30-55); Mean Corpuscular Hemoglobin 28.9 pg (27-33); Mean Corpuscular Volume 85.3 fl (85-98); Mean Platelet Volume 10.3 fL (7.4-10.4); Platelet Count 184 10^3/cmm (157-399); Red Blood Count 3.67 10^6/uL (3.85-5.65); Red Cell Distribution Width 14.3 % (12.1-15.1)
--- NOTE | 2023-07-13 23:08 | PC.NURSE ---
See centricity for VS
[2023-07-14 04:09] VITALS: RESP 18
--- NOTE | 2023-07-14 04:09 | PC.NURSE ---
see centricity for VS
[2023-07-14] MEDS: ibuprofen 800 mg tablet PO (13:58)
--- NOTE | 2023-07-14 14:10 | P.PN_ITS ---
PAPER PROCESSING MACHINE HELPER Subjective 2 Subjective: Interval history: no c/o eating, voiding, ambulating well no pain, bleeding wants to go home without any difficulties Labor: Amniotic Membrane Status: Intact Vitals/I&O/Wt Last Vital Signs Temp 97.1 F L 07/13/23 09:00 Pulse 65 07/13/23 09:00 Resp 18 07/14/23 04:09 BP 111/65 07/13/23 09:00 Pulse Ox 97 07/13/23 09:00 O2 Del Method Room Air 07/13/23 09:00 07/13/23 07/14/23 07/14/23 22:59 06:59 14:59 Intake Total 1000 / 1000 Output Total 999 Balance -1000 / -1015 1000 / 1000 Weight last 48 hrs Weight 280 lb Physical Exam 2 Narrative: comfortable afebrile, VS normal Abd: soft, nontender wound clean and dry Ext: normal Urinary Catheter Management: Lyles: Cath Placed During This Visit: yes, but has since been removed by the nurse Reason for Continuing Indwelling Catheter: Required Immobilization for Trauma or Surgery or Anesthesia Urinary Catheter Date of Insertion: 07/13/23 Urinary Catheter Time of Insertion: 07:20 Date Urinary Catheter Removed: 07/13/23 Time Urinary Catheter Discontinued: 22:20 Data 07/13/23 20:43 A&P Assessment and plan (1) S/P : POD #1 RCS doing well discharge home today instructions and precautions given call/return if fever, chills, nausea, vomiting, headaches, abdominal pain, bleeding, inability to void, swelling, leg pain; feelings of depression or mood changes; wound redness, swelling, or discharge f/u in 1 week or PRN Attestations 2 Medical Necessity Statement*: patient s/p repeat , plan discharge home today Coding Level of Care Code Acute Code for Chg Fwd Diagnoses S/P Z98.891 Time Spent (min) 20
--- NOTE | 2023-07-14 14:14 | PM.OBGYDC ---
Discharge Providers FIELD PLACEMENT DIRECTOR Date of Admission: 07/13/23 05:35 Date of Discharge: 07/14/23 Attending Provider at Admission: Steffen Salinas MD Attending Provider at Discharge: Steffen Salinas MD Consults: none Primary FIELD PLACEMENT DIRECTOR: Steffen Salinas MD Primary Care Provider: CATHERINE Barnes Diagnoses at Discharge Discharge Diagnosis (1) S/P : Details from hospital stay: patient underwent repeat without any complications had normal course discharged home on first postoperative day Status: Acute Reason for Visit Reason for Visit: C Section Brief History: patient with h/o six previous c-sections admitted for repeat Hospital Course Hospital Course patient underwent repeat without any complications had normal course discharged home on first postoperative day Information Peripartum Data: Infant Delivery Method: Physical Exam Narrative: comfortable afebrile, VS normal Abd: soft, nontender wound clean and dry Ext: normal Urinary Catheter Management: Lyles: Cath Placed During This Visit: yes, but has since been removed by the nurse Reason for Continuing Indwelling Catheter: Required Immobilization for Trauma or Surgery or Anesthesia Urinary Catheter Date of Insertion: 07/13/23 Urinary Catheter Time of Insertion: 07:20 Date Urinary Catheter Removed: 07/13/23 Time Urinary Catheter Discontinued: 22:20 History History History 12 Term 9 2 Miscarriages/Ectopic 2 Living Children 11 Discharge Data Studies Completed and Pending Pending at discharge Category Date Time Status Antibody Identification Stat Lab 07/13/23 06:17 Results Leukocyte Reduced RBC Routine Lab 07/13/23 06:17 Results Type and Screen Stat Lab 07/13/23 06:17 Results Laboratory Results WBC 11.20 10^3/uL (3.29-11.43) 07/13/23 20:43 RBC 3.67 10^6/uL (3.85-5.65) L 07/13/23 20:43 Hgb 10.60 g/dL (11.27-16.99) L 07/13/23 20:43 Hct 31.3 % (36-47) L 07/13/23 20:43 MCV 85.3 fl (85-98) 07/13/23 20:43 MCH 28.9 pg (27-33) 07/13/23 20:43 MCHC 33.9 g/dL (30-55) 07/13/23 20:43 RDW 14.3 % (12.1-15.1) 07/13/23 20:43 Plt Count 184 10^3/cmm (157-399) 07/13/23 20:43 MPV 10.3 fL (7.4-10.4) 07/13/23 20:43 Neut % (Auto) 68.1 % 07/13/23 06:17 Lymph % (Auto) 23.2 % 07/13/23 06:17 [place] % (Auto) 5.7 % 07/13/23 06:17 Eos % (Auto) 2.4 % 07/13/23 06:17 Baso % (Auto) 0.2 % 07/13/23 06:17 Neut # (Auto) 5.77 10^3/uL (1.8-7.7) 07/13/23 06:17 Lymph # (Auto) 2.0 10^3/uL (0.8-4.8) 07/13/23 06:17 [place] # (Auto) 0.5 10^3/uL (0.2-0.9) 07/13/23 06:17 Eos # (Auto) 0.2 10^3/uL (0.0-0.8) 07/13/23 06:17 Baso # (Auto) 0.0 10^3/uL (0.0-0.1) 07/13/23 06:17 Nucleated RBC % (auto) 0 % 07/13/23 06:17 Nucleated RBCs # 0.0 /100WBC 07/13/23 06:17 Blood Type A Negative 07/13/23 06:17 Rho(D) Type Negative 07/13/23 06:17 Antibody Screen Positive 07/13/23 06:17 Antibody Identification Anti-D 07/13/23 06:17 Crossmatch See Detail 07/13/23 06:17 Procedures Performed repeat low-transverse Vitals Last Vital Signs Temp 97.1 F L 07/13/23 09:00 Pulse 65 07/13/23 09:00 Resp 18 07/14/23 04:09 BP 111/65 07/13/23 09:00 Pulse Ox 97 07/13/23 09:00 O2 Del Method Room Air 07/13/23 09:00 Results Labs OB ([facility]): Obstetrics US 05/23/23 Obstetrics US/Biophysical Profile 05/24/21 Blood Type A Negative 07/13/23 Antibody Screen Positive 07/13/23 Hct 31.3 % (36-47) L 07/13/23 Hgb 10.60 g/dL (11.27-16.99) L 07/13/23 Rho(D) Type Negative 07/13/23 Plt Count 184 10^3/cmm (157-399) 07/13/23 Hep Bs Antigen Non-reactive (Nonreactive) 04/06/23 Hepatitis C Antibody Non-reactive (Nonreactive) 04/06/23 Rubella IgG Antibody 123.4 IU/mL (0.0-10.0) H 04/06/23 RPR Nonreactive (Nonreactive) 04/06/23 HIV 1&2 Ab & HIV 1 Ag Non-reactive (Non-Reactiv) 04/06/23 TSH 0.69 uIU/mL (0.27-4.20) 04/06/23 Free T4 0.85 ng/dL (0.82-1.77) 04/06/23 C.trachomatis RNA (TMA) Not detected (NOT DETECTED) 04/10/23 N.gonorrhoeae RNA (TMA) Not detected (NOT DETECTED) 04/10/23 T. vaginalis Amp RNA Not detected (NOT DETECTED) 04/10/23 Chlamydia/GC Comment See note 04/10/23 Gest Glucose Tolerance mg/dL 04/28/23 Urine Opiates Screen Negative ng/mL (Negative) 04/06/23 Ur Barbiturates Screen Negative ng/mL (Negative) 04/06/23 Ur Phencyclidine Scrn Negative ng/mL (Negative) 04/06/23 Ur Amphetamines Screen Negative ng/mL (Negative) 04/06/23 U Benzodiazepines Scrn Negative ng/mL (Negative) 04/06/23 Urine Cocaine Screen Negative ng/mL (Negative) 04/06/23 U Marijuana (THC) Screen Negative ng/mL (Negative) 04/06/23 Micro Urine Specimen 04/06/23 Pap Smear Interpret See note 02/12/21 Discharge Plan Discharge Patient Disposition: Home Condition: Stable Prescriptions: Continued prenat.vits,ramy,[id number] Tablet 1 tab PO DAILY (DME) blood-glucose meter [Blood Glucose Monitoring] Kit See Rx Instructions .MEDSULY Qty: 1 0RF Rx Instructions: please include lancets, alchol swabs, and test strips; check sugars fasting first thing in the morning and two hours after each meal Discharge Orders: Discharge Order (Routine); Ordered 07/14/23 Ordered By: Steffen Salinas Referrals: Steffen Salinas MD [Physician] - 07/19/23 9:00 am (Your [address] Salinas is on Wednesday August 23, 2023 at 10:00 a.m.) Discharge Diet: Usual diet Discharge Activity: Increase activity as tolerated Patient Instructions: Depression (DC), Preeclampsia and Eclampsia After Delivery (GEN), Breast Care for the Mother (DC), OB C, OB Care at Home, Opioid Safety, Abnormal Bleeding Discharge Attestations FIELD PLACEMENT DIRECTOR Time Spent in Discharge Care*: less than 30 min Coding Level of Care Code Acute Code for Chg Fwd Diagnoses S/P Z98.891 Time Spent (min) 20
[2023-07-14 14:20] VITALS: BP 118/70; PULSE 70; RESP 18; TEMP 36.6
== END 2023-07-14 14:30 | disposition home or self-care (01) | DRG 788 ==
LOC: OBGYN 05:37
PROVIDERS: Admitting Provider Obstetrics & Gynecology; PCP Nurse Practitioner; Visit Provider Obstetrics & Gynecology
PROC: 10D00Z1 Extraction of Products of Conception, Low, Open Approach (ICD-10-PCS; CPT 59514; principal; 2023-07-13 07:00)
DX: O34.211 Maternal care for low transverse scar from previous cesarean delivery (principal); O99.214 Obesity complicating childbirth; E66.01 Morbid (severe) obesity due to excess calories; Z37.0 Single live birth; Z3A.38 38 weeks gestation of pregnancy
CPT/HCPCS: 36415; 51702; 59409; 81000; 85025; 85027; 86850; 86870; 86900; 86920; 96374; 96376; J1100; J1200; J1885; J2274; J2371; J2405; J2765; J3010; J3490; J7120; J7121

== ENCOUNTER → 2025-02-14 16:03 | Outpatient (BNVA) | payer SELFPAY | PROVIDERS: PCP Nurse Practitioner; Visit Provider Nurse Practitioner Women's Health | DX: O99.810 Abnormal glucose complicating pregnancy (principal); N91.2 Amenorrhea, unspecified; Z34.90 Encounter for supervision of normal pregnancy, unspecified, unspecified trimester | CPT/HCPCS: 80307; 81025; 82950; 83036; 84443; 85025; 86592; 86762; 86803; 86850; 86900; 87086; 87340; 87491; 87591; 87661; 87806 ==

== ENCOUNTER → 2025-02-18 13:37 | Outpatient (BNVA) | payer SELFPAY | PROVIDERS: PCP Nurse Practitioner; Visit Provider Nurse Practitioner Women's Health | DX: Z34.93 Encounter for supervision of normal pregnancy, unspecified, third trimester (principal) | CPT/HCPCS: 76805 ==

== ENCOUNTER → 2025-02-19 08:10 | Outpatient (BNVA) | payer SELFPAY | PROVIDERS: PCP Nurse Practitioner; Visit Provider Obstetrics & Gynecology | DX: Z34.90 Encounter for supervision of normal pregnancy, unspecified, unspecified trimester (principal) | CPT/HCPCS: 82951; 82952; 84315; 86850 ==

== ENCOUNTER → 2025-03-17 12:59 | Outpatient (BNVA) | payer SELFPAY | PROVIDERS: PCP Nurse Practitioner; Visit Provider Obstetrics & Gynecology | DX: O09.43 Supervision of pregnancy with grand multiparity, third trimester (principal); O09.33 Supervision of pregnancy with insufficient antenatal care, third trimester | CPT/HCPCS: 84315 ==

== ENCOUNTER 2025-04-10 14:24 | Outpatient (CLI) | payer SELFPAY ==
[2025-04-10] MEDS: betamethasone susp 6 mg/mL 5 mL 12 MG IM (14:40)
== END 2025-04-10 14:40 | disposition home or self-care (01) ==
LOC: OPOB 14:25 → OBGYN 14:25
PROVIDERS: PCP Nurse Practitioner; Visit Provider Obstetrics & Gynecology
DX: O26.899 Other specified pregnancy related conditions, unspecified trimester (principal); Z3A.00 Weeks of gestation of pregnancy not specified
CPT/HCPCS: 96372; J0702

== ENCOUNTER 2025-04-11 14:16 | Outpatient (CLI) | payer SELFPAY ==
[2025-04-11 14:20] VITALS: BMI 51.5
[2025-04-11] MEDS: betamethasone susp 6 mg/mL 5 mL 12 MG IM (14:28)
== END 2025-04-11 14:37 | disposition home or self-care (01) ==
LOC: OPOB 14:18 → OBGYN 04-15 13:58
PROVIDERS: PCP Nurse Practitioner; Visit Provider Obstetrics & Gynecology
DX: O26.899 Other specified pregnancy related conditions, unspecified trimester (principal); Z3A.00 Weeks of gestation of pregnancy not specified
CPT/HCPCS: 96372; 99211; J0702